=== PATIENT | male | born 1955 | race Caucasian/White ===

== ENCOUNTER 2019-06-17 10:28 | Emergency (ER) | payer BC ==
[~2019-06-17] VITALS: Ht 188 cm; Wt 97.5 kg
[2019-06-17 10:35] VITALS: BP 144/85
--- NOTE | 2019-06-17 10:52 | PCM.EKG ---
[facility] Test Date: 2019-06-17 Test Time: 10:39:36 Pat Name: MINISTERIO RIOS [facility]: [id number] Room: Gender: M Plan Coordinator: : 1955 Requested By: FUNMI MOTTA Order Number: [id number] Reading MD: Funmi Motta Measurements Intervals [place] Rate: 74 P: 68 TX: 140 QRS: 2 QRSD: 98 T: 59 QT: 414 QTc: 459 Interpretive Statements Normal sinus rhythm Normal ECG No previous ECG available for comparison Electronically Signed On 06-17-2019 18:36:30 CDT by Funmi Motta Please click the below link to view image of tracing.
--- NOTE | 2019-06-17 11:01 | ER.PDOC ---
General Chief Complaint: Chest Pain-Cardiac Nature Stated Complaint: CHEST PAIN Time seen by MD: 10:42 Source: patient Exam Limitations: no limitations History of Present Illness Initial Comments Pt states that this morning he felt weak, ate something, went to work, there he felt dizzy, then developed neck pain and radiating to anterior chest, lasted for about three to four minutes, but, dizziness persisted Severity/Quality: moderate Radiation: jaw, neck Prior CP/Workup: No Prior Chest Pain Nitro Today/Relief: No Nitro Taken Today Aspirin Today: No Aspirin Today Associated Symptoms: dizziness Prior symptoms/Treatment: Similar symptoms previous Allergies: Coded Allergies: Penicillins (Verified Allergy, Intermediate, Nausea, 06/17/19) Past Medical History Medical History: hypertension Surgical History: appendectomy, back, knee, neck Social History Smoking: less than 1 pack/day Alcohol Use: occassionally Drug Use: none EENTM: see HPI Cardiovascular: see HPI Musculoskeletal: see HPI All Other Systems: Reviewed and Negative Physical Exam General Appearance: No Apparent Distress, WD/WN HEENT: PERRL/EOMI, Normal ENT Inspection, TMs Normal, Pharynx Normal Neck: Non-Tender, Full Range of Motion, Supple, Normal Inspection, Carotid Bruit (right) Respiratory: chest non-tender, lungs clear, normal breath sounds, no respiratory distress, no accessory muscle use Cardiovascular: Normal Peripheral Pulses, Regular Rate, Rhythm, No Edema, No Ga llop, No JVD, No Murmur Gastrointestinal: Normal Bowel Sounds, No Organomegaly, No Pulsatile Mass, Non Tender, Soft Extremities: Normal Range of Motion, Non-Tender, Normal Inspection, No Pedal Edema, No Calf Tenderness, Normal Capillary Refill Neurologic/Psychiatric: [employer] II-XII NML as Tested, No Motor/Sensory Deficits, Alert, Normal Mood/Affect, Oriented x 3, Other (negative Hallpike meneuvers) Skin: Normal Color, Warm/Dry Lymphatic: No Adenopathy Results/Orders Results/Orders Orders - FUNMI KRUEGER MD Cbc With Auto Diff (06/17/19 10:41) Comprehensive Metabolic Panel (06/17/19 10:41) Creatine Kinase (06/17/19 10:41) Troponin I (06/17/19 10:41) Probnp B-Type Rubber Insulator (06/17/19 10:41) PT (06/17/19 10:41) Partial Thromboplastin Time. (06/17/19 10:41) Ekg-Routine (06/17/19 10:41) Ct Head Wo Contrast (06/17/19 10:41) Us Carotid (06/17/19 10:50) Vital Signs Date Time Temp Pulse Resp B/P (MAP) Pulse Ox O2 Delivery O2 Flow Rate FiO2 06/17/19 10:35 98.0 75 14 144/85 (104) 99 Room Air 06/17/19 10:35 98.0 75 18 06/17/19 10:31 75 14 99 Room Air Departure Time of Disposition: 13:11 Disposition: 01 HOME, SELF-CARE Impression: Primary Impression: Dizziness after extension of neck Additional Impression: Sinusitis accessory Condition: Stable Patient Instructions: Dizziness, [id number], Labyrinthitis (Inner Ear Inflammation)-Brief Referrals: PCP,UNKNOWN (PCP) PRIMARY CARE PROVIDER Duration or Time Spent with Pa: 20 Problem Qualifiers FUNMI KRUEGER MD Jun 17, 2019 11:01
[2019-06-17 11:05] LABS: BASOPHIL % 0.3 % (0.0-0.2); EOSINOPHIL # 0.5 10^3/uL (0.0-0.2); HEMOGLOBIN 14.1 g/dL (13.9-16.3); LYMPHOCYTES # 1.6 10^3/uL (1.0-4.8); LYMPHOCYTES % 16.4 % (24.0-44.0); MEAN CELL HGB 33.3 pg (26-34); MEAN CELL HGB CONCENTRATION 34.5 g/dL (33-37); MEAN CORP VOLUME 96.5 fL (78-100); MEAN PLATELET VOLUME 10.2 fL (7.8-11.0); MONOCYTES # 0.8 10^3/uL (0.3-0.8); MONOCYTES % 8.1 % (5.0-12.0); NEUTROPHIL # 6.7 10^3/uL (1.8-7.7); NEUTROPHILS % 69.8 % (41.0-85.0); WHITE BLOOD CELL 9.6 10^3/uL (4.5-11.0)
--- NOTE | 2019-06-17 11:12 | NUR ---
UPDATE ULTRA SOUND AT BEDSIDE.
[2019-06-17 11:26] LABS: ALANINE AMINOTRANSFERASE(ML) 51 U/L (12-78); ALKALINE PHOSPHATASE 66 U/L (50-136); ASPARTATE AMINO TRANSFERASE 31 U/L (0-35); CALCIUM 9.7 mg/dL (8.4-10.5); CARBON DIOXIDE 29.4 mmol/L (20.0-32); GLUCOSE 101 mg/dL (70-110)
--- NOTE | 2019-06-17 11:43 | NUR ---
CAT SCAN PATIENT TO AND FROM CAT SCAN WITH RORY FROM RADIOLOGY.
--- NOTE | 2019-06-17 12:41 | DIREP ---
PROCEDURE:US DOPPLER CAROTID BILATERAL COMPARISON:None. INDICATIONS:Dizziness, bruit TECHNIQUE:Sonographic evaluation of carotid arteries was performed together with grayscale, color-flow, and spectral analysis. FINDINGS: PEAK FLOW VELOCITIES (cm/sec) RIGHT CCA: PROX:81.6 cm/s MID:74.6 cm/s DIST:63.3 cm/s RIGHT BULB: 62.4 cm/s RIGHT ICA: PROX:86.6 cm/s MID:87.9 cm/s DIST:91.7 cm/s RIGHT ECA:89.7 cm/s RIGHT ICA/CCA:1.1 RIGHT VERTEBRAL:52.9 cm/s; Antegrade IMAGES:There is mild hard plaque. LEFT CCA: PROX:92.6 cm/s MID:Not imaged. DIST:60.1 cm/s LEFT BULB:82.9 cm/s LEFT ICA: PROX:71.0 cm/s MID:87.9 cm/s DIST:103.0 cm/s LEFT ECA:90.4 cm/s LEFT ICA/CCA:1.1 LEFT VERTEBRAL:45.7 cm/s; Antegrade IMAGES:There is moderate scattered hard plaque. CONCLUSION:No increased Doppler velocities to suggest focal stenosis. Diameter Stenosis (%)ICA Peak Systolic Velocity (cm/s)ICA/CCA RatioNormal<125<2.0<50<125<[id number]>2-470 to near occlusion>230>4J Ultrasound Med 2005; 24:3864-0797 Dictated by: RIO Physician on 06/17/2019 at 11:37 AM ac
--- NOTE | 2019-06-17 12:42 | DIREP ---
PROCEDURE:CT HEAD OR BRAIN W/O CONTRAST COMPARISON:None. INDICATIONS:Dizziness TECHNIQUE:CT images were created without intravenous contrast. FINDINGS: VENTRICLES: Unremarkable ventricular size and morphology for the patient's age. CEREBRUM: No apparent mass or mass effect. No acute intracranial hemorrhage or abnormal extra-axial fluid collections. No CT evidence to suggest acute large vascular territorial ischemia. CEREBELLUM: Unremarkable for the patient's age. BRAINSTEM: Normal. SKULL: Normal. SINUSES: Mild mucosal thickening within the maxillary sinuses bilaterally with prominent mucosal retention cyst on the left. Mild mucosal thickening is also noted within the sphenoid sinuses. There is scattered mucosal thickening and opacification of the ethmoid air cells. CONCLUSION: 1. No acute intracranial abnormality. 2. Paranasal sinus disease as discussed above. Dictated by: Jg Horta M.D. On 06/17/2019 at 11:56 AM
--- NOTE | 2019-06-17 12:44 | NUR ---
UPDATE UNABLE TO RECEIVE ULTRA SOUND REPORTS OR CT RESULTS AT THIS TIME DUE TO TECHNICAL DIFFICULTIES. WAITING FOR RESULTS
[2019-06-17 13:26] VITALS: BP 116/78
== END 2019-06-17 13:21 | disposition home or self-care (01) ==
LOC: ER 10:28
DX: J32.9 Chronic sinusitis, unspecified (principal); R42 Dizziness and giddiness; I10 Essential (primary) hypertension; F17.210 Nicotine dependence, cigarettes, uncomplicated; Z88.0 Allergy status to penicillin
CPT/HCPCS: 36415; 70450; 80053; 82550; 83880; 84484; 85025; 85610; 85730; 93005; 93880; 99285

== ENCOUNTER 2019-06-21 06:53 | Day surgery (SDC) | payer BC ==
--- NOTE | 2019-06-20 18:39 | DIREP ---
PROCEDURE:CHEST 2 VIEWS COMPARISON:None. INDICATIONS:PREOP HEART CATH FINDINGS: LUNGS/PLEURA:No significant pulmonary parenchymal abnormalities. No effusions. VASCULATURE:Normal. Unremarkable pulmonary vasculature. CARDIAC:Normal. No cardiac silhouette abnormality or cardiomegaly. MEDIASTINUM:Normal. No visible mass or adenopathy. BONES:ACDF OTHER:Negative. CONCLUSION:No infiltrate, no effusion. Dictated by: Nataly Barry MD on 06/20/2019 at 06:37 PM
[2019-06-21] VITALS (10 sets, daily range): BP systolic 92–111; BP diastolic 50–72
[~2019-06-21] VITALS: Ht 188 cm; Wt 97.1 kg
[~2019-06-21 06:53] MED LIST: NS 1000ML 1,000 ML ONE
[2019-06-21] MEDS ORDERED: VALIUM PO ONE (07:00)
[2019-06-21] MEDS ORDERED: PHENERGAN PO ONE (07:00)
[2019-06-21] MEDS ORDERED: NS 1000ML 1,000 ML IV SCH (07:00)
[2019-06-21] MEDS ORDERED: HEPARIN ONE (07:06)
[2019-06-21] MEDS ORDERED: NS 1000ML 1,000 ML ONE (07:06)
[2019-06-21] MEDS ORDERED: XYLOCAINE ONE (07:07)
[2019-06-21] MEDS ORDERED: VERSED ONE (07:07)
[2019-06-21] MEDS ORDERED: SUBLIMAZE ONE (07:07)
[2019-06-21] MEDS ORDERED: LISI1TAB19 PO (07:09)
[2019-06-21] MEDS ORDERED: ALLO100T PO (07:09)
[2019-06-21] MEDS ORDERED: MECL25TA3 PO (07:09)
[2019-06-21] MEDS ORDERED: ROSU20TA2 PO (07:09)
[2019-06-21] MEDS ORDERED: VALIUM ONE (07:15)
[2019-06-21] MEDS ORDERED: PHENERGAN ONE (07:15)
[2019-06-21] MEDS ORDERED: ASPI-484 PO (09:59)
[2019-06-21] MEDS ORDERED: CARV6.25 PO (09:59)
--- NOTE | 2019-06-21 11:13 | DIREP ---
PROCEDURE:US ABDOMEN LIMITED(SINGLE ORGAN-QUAD) COMPARISON:None. INDICATIONS:CHEST PAIN TECHNIQUE: High resolution sonographic examination was performed of the abdomen. FINDINGS: CBD:0.4 cm GALLBLADDER:0.2 cm PANCREAS:Visualized portions of the pancreatic head and body appear normal. The pancreatic tail is obscured by bowel gas shadowing. LIVER:Increased hepatic echotexture consistent with hepatic steatosis. No focal hepatic lesion identified. Hepatopetal flow in the portal vein. GALLBLADDER:Normal appearing gallbladder without evidence for gallbladder wall thickening or pericholecystic fluid. BILIARY:There is no biliary ductal dilatation. RIGHT KIDNEY:Normal. No hydronephrosis. OTHER:Negative. No ascites is identified. CONCLUSION: 1. Echogenic liver indicates fatty infiltration Dictated by: [facility] Physician on 06/21/2019 at 10:54 AM Read in [place] ld
--- NOTE | 2019-06-21 13:15 | [facility] ---
DATE OF SERVICE: 06/21/2019 HEART CATH REPORT PRECATHETERIZATION DIAGNOSES: History consistent with crescendo, unstable angina, hypertension, non-flow obstructive carotid disease with calcification, nonspecific ST-T wave changes. Resting myocardial perfusion scan showed inferior hypoperfusion. Assess for significant coronary artery disease. POSTCATHETERIZATION DIAGNOSES: Short left main fully patent, type 3 LAD encircling the apex appears to be fully patent with a diagonal branch is fully patent. LAD is a dominant vessel, codominant circumflex is a large obtuse marginal branch, fully patent. Right coronary artery is small, nondominant vessel and is diminutive vessel, appears to be patent. Left ventricle is normal in size with good wall contractility, 60% ejection fraction. ANESTHESIA: 2% lidocaine. PREOPERATIVE MEDICATIONS: Phenergan 50 mg p.o., Valium 2.5 mg p.o., Versed 2 mg IV, fentanyl 50 mcg IV. ANTICOAGULATION: Heparin 2000 units intra-arterially, 2000 units in the flush solution, 1000 units in the dye solution. Dye is Omnipaque. Total amount is 60 mL. CATHETERS: JL4 6-Monegasque, JR4 6-Monegasque, and 6-Monegasque angled pigtail catheter. ARTERIAL TIME: 6 minutes. FLUOROSCOPY TIME: 1.3 minutes. PROCEDURES: Left heart catheterization, bilateral selective coronary arteriography, left ventriculography via right femoral Anthony approach. NARRATION OF PROCEDURE: Under local anesthesia, right femoral artery was punctured percutaneously by arterial needle, guide wire passed in right femoral artery, 6-Monegasque Cordis sheath introduced, side port of the sheath used for femoral arterial pressure monitoring. Sheath anchored with suture. Left Anthony catheter introduced over guide wire into ascending aorta left coronary artery cannulated and left coronary angiography performed in ANDORRAN and DAILEY projections with craniocaudal applications to visualize all branches. Left catheter exchanged for right coronary catheter and right coronary angiography performed in ANDORRAN and DAILEY. This catheter exchanged for 6-Monegasque pigtail catheter and catheter crossed the aortic valve and left ventricular LVEDP measured and LV gram performed in 30 degrees DAILEY view with 30 mL Omnipaque dye and panning of descending aorta attempted. Patient tolerated procedure well. No complications of procedure. Angio-Seal deployed for hemostasis. HEMODYNAMICS: LVEDP is 12 mm, LV pressure is 1/12, femoral artery pressure is 108/58 with a mean of 70. No gradient across the aorta on pullback of the central catheter. FINAL CONCLUSION: Normal coronary angiogram with a small diminutive right coronary artery and no flow obstruction documented, intact LV systolic function. RECOMMENDATIONS: EGD and gallbladder sonogram to be advised. Risk factor modification, do lipid profile and blood pressure treatment. We will continue Coreg 6.25 mg twice a day and leave off his lisinopril HCT and we will give a trial of Protonix 40 mg once a day. Laxmichand MD Mike DR: TAISHA/carolina JOB# [id number]
== END 2019-06-21 11:55 | disposition home or self-care (01) | DRG 303 ==
LOC: SDC 06:53
PROVIDERS: ATTEND Specialist
DX: I25.119 Atherosclerotic heart disease of native coronary artery with unspecified angina pectoris (principal); I73.9 Peripheral vascular disease, unspecified; I11.0 Hypertensive heart disease with heart failure; E78.5 Hyperlipidemia, unspecified; K76.0 Fatty (change of) liver, not elsewhere classified; K43.9 Ventral hernia without obstruction or gangrene; M19.90 Unspecified osteoarthritis, unspecified site; F17.210 Nicotine dependence, cigarettes, uncomplicated; E66.3 Overweight; Z68.27 Body mass index [BMI] 27.0-27.9, adult; Z79.82 Long term (current) use of aspirin; Z79.84 Long term (current) use of oral hypoglycemic drugs; Z79.899 Other long term (current) drug therapy; Z88.0 Allergy status to penicillin
CPT/HCPCS: 71046; 76705; 93458; 99152; C1760; C1894 ×3; J1644 ×2; J2250; J3010; J7030 ×2; Q9967